=== PATIENT | female | born 1995 | race Caucasian/White ===

== ENCOUNTER 2017-03-05 03:00 | Emergency (ER) | payer BC ==
[~2017-03-05] VITALS: Ht 160 cm; Wt 54.0 kg
[2017-03-05] MEDS ORDERED: SODIUM CHLORIDE 0.9% 1,000 ML IV ONE (03:05)
[2017-03-05 03:27] LABS: BASOPHILS % 0.9 % (0.0-2.0); EOSINOPHILS % 0.8 % (0.0-5.0); HEMATOCRIT. 39.6 % (36.0-48.0); LYMPHOCYTES % 18.9 % (20.0-50.0); MEAN CORPUSCULAR HEMOGLOBIN 32.8 pg (28.0-32.0); MEAN CORPUSCULAR VOLUME 92.7 fL (81.0-99.0); MEAN PLATELET VOLUME 8.4 fl (7.4-10.4); NEUTROPHILS % 73.4 % (40.0-76.0); PLATELET 254 x1000/uL (130-400); RED BLOOD CELL COUNT 4.27 mill/uL (4.2-5.4); RED CELL DISTRIBUTION WIDTH 13.8 % (11.6-14.6)
[2017-03-05 03:30] LABS: PROTHROMBIN TIME 10.7 sec (9.4-11.6)
[2017-03-05 03:32] LABS: CLARITY URINE CLEAR (CLEAR); COLOR URINE YELLOW (YELLOW); GLUCOSE URINE NEGATIVE (NEGATIVE); KETONES URINE NEGATIVE (NEGATIVE); LEUKOCYTE ESTERASE URINE NEGATIVE (NEGATIVE); NITRITE URINE NEGATIVE (NEGATIVE); OCCULT BLOOD URINE NEGATIVE (NEGATIVE); PH URINE 6.5 (4.5-8.0); PROTEIN URINE NEGATIVE (NEGATIVE); SPECIFIC GRAVITY URINE 1.007 (1.005-1.030); UROBILINOGEN URINE 0.2 E.U./dL (0.2-1.0)
[2017-03-05 03:34] LABS: CHLORIDE 105 mEq/L (98-107)
[2017-03-05 03:44] LABS: CARBON DIOXIDE 24 mEq/L (21-32); ETHANOL BLOOD < 10 mg/dL
[2017-03-05 03:57] LABS: *AMPHETAMINES SCREEN URINE NEGATIVE (NEGATIVE); *BARBITURATES SCREEN URINE NEGATIVE (NEGATIVE); *BENZODIAZEPINES SCREEN URINE NEGATIVE (NEGATIVE); *COCAINE SCREEN URINE NEGATIVE (NEGATIVE); CANNABINOID URINE SCREEN NEGATIVE (NEGATIVE); METHADONE URINE SCREEN NEGATIVE (NEGATIVE); OPIATES URINE SCREEN NEGATIVE (NEGATIVE); PHENCYCLIDINE URINE SCREEN NEGATIVE (NEGATIVE)
[2017-03-05] MEDS ORDERED: NALOXONE HCL 0.4 MG/ML 1ML VIAL IV ONE (05:00)
[2017-03-05] MEDS ORDERED: NALOXONE HCL 0.4 MG/ML 1ML VIAL ONE (10:46)
[2017-03-06 10:43] VITALS: BP 130/79
== END 2017-03-06 11:15 ==
LOC: ER 03:00
DX: T50.B9 Poisoning by, adverse effect of and underdosing of other viral vaccines (principal); Y92.89 Other specified places as the place of occurrence of the external cause
CPT/HCPCS: 36415; 80053; 80305; 80307; 80329; 81003; 81025; 85025; 85610; 93005; 96361; 96374; 99285; G0482; J2310; J7030

== ENCOUNTER 2018-07-18 03:13 | Observation (INO) | payer MEDICAID ==
[~2018-07-18] VITALS: Ht 162.6 cm; Wt 60.8 kg
[2018-07-18] MEDS ORDERED: PREN1TAB78 MT (03:48)
[2018-07-18] MEDS ORDERED: FOLI-43 MT (03:48)
[2018-07-18] MEDS ORDERED: CALC-1042 MT (03:48)
[2018-07-18] MEDS ORDERED: TERBUTALINE SULFATE 1MG/ML VIAL SUBCUT PRN (04:30)
[2018-07-18] MEDS ORDERED: LACTATED RINGERS 1,000 ML IV SCH (04:30)
== END 2018-07-18 07:20 | disposition home or self-care (01) ==
LOC: 8 EST LDRP 03:13
PROVIDERS: ADMIT Obstetrics & Gynecology; ATTEND Obstetrics & Gynecology
DX: O26.853 Spotting complicating pregnancy, third trimester (principal); O26.893 Other specified pregnancy related conditions, third trimester; M54.5 Low back pain; Z3A.31 31 weeks gestation of pregnancy
CPT/HCPCS: 76805; 76818; 96372; 99281; G0378; J3105; 96360; J7120